=== PATIENT | male | born 1960 | race Caucasian/White ===

== ENCOUNTER 2016-06-05 15:19 | Emergency (ER) | payer BC ==
[2016-06-05] MEDS ORDERED: Ketorolac 30 MG/ML SDV IVPUSH ONE (15:31)
[2016-06-05] MEDS ORDERED: HYDROmorphone 2 MG/ML Syringe IVPUSH ONE ×2 (15:31→16:50)
[2016-06-05] MEDS ORDERED: Ondansetron 4 MG/2 ML SDV IVPUSH ONE ×2 (15:31→16:50)
[2016-06-05] MEDS ORDERED: Sodium Chloride 0.9% 1,000 ML IV ONE (15:31)
[2016-06-05] MEDS ORDERED: Sodium Chloride 0.9% 10 ML Syringe FLUSH PRN (15:31)
[2016-06-05] MEDS ORDERED: Sodium Chloride 0.9% 2.5 ML Syringe FLUSH PRN (15:31)
--- NOTE | 2016-06-05 15:40 | EDM.PDOC ---
ED HPI GENERAL MEDICAL PROBLEM - General Chief Complaint: Abdominal Pain Stated Complaint: STOMACH PAIN/KIDNEY STONES Time Seen by Provider: 06/05/16 15:23 - History of Present Illness INITIAL COMMENTS - FREE TEXT/NARRATIVE: HISTORY AND PHYSICAL: History of present illness: The patient is a 55-year-old male with a history of mho-azihhbm-rljoeybll diabetes who presents with severe left sided and left flank pain as been ongoing for the last several days and intractable vomiting that has been going on for the last day and a half. The patient states the pain started suddenly in the left lower abdomen and he went to the ER in [place] and was evaluated there. He had a full workup including EKG troponin CBC CMP and a CT scan of the abdomen and pelvis with contrast. He was diagnosed with a 5 mm left UPJ stone with mild hydronephrosis. He was placed on [place] and Zofran and discharged home. The patient states that he has tried to take the [place] but it causes him to have nausea and he vomits the patella. He was only doing this intermittently in the first 12 hours after being discharged from their ER but now for the last 24 hours he has intractable vomiting and persistent pain. He says he now feels more bloated he has not had a bowel movement 24-hour switch is unusual for him because he usually has 2-3 a day. He has not had any black or bloody vomitus and no black or blood in his stools. He is able to urinate and does not feel that he has urinary retention and there is no frequency urgency or dysuria. The patient states the pain is localized to the left side at the flank and the abdomen is not midline back and doesn't radiate to his legs. Patient denies any chest pain or shortness of breath. The patient states that with the vomiting he is also unable to even tolerate ice chips or water. His tried the Zofran he was given and says it is not working. Review of systems: As per history of present illness and below otherwise all systems reviewed and negative. Past medical history: As per history of present illness and as reviewed below otherwise noncontributory. Surgical history: As per history of present illness and as reviewed below otherwise noncontributory. Social history: No reported history of drug or alcohol abuse. Family history: As per history of present illness and as reviewed below otherwise noncontributory. Physical exam: General: Well-developed overweight male who is nontoxic and looks uncomfortable in the room. Vital signs been noted by me HEENT: Atraumatic, normocephalic, negative for conjunctival pallor or scleral icterus, mucous membranes tacky, throat clear, neck supple, nontender, trachea midline. Lungs: Clear to auscultation, breath sounds equal bilaterally, chest nontender. Heart: S1S2, regular, negative for clicks, rubs, or JVD. Abdomen: Soft, mildly distended and tympanitic on percussion and tenderness is identified on deep palpation in the right upper mid and lower abdomen without rebound or guarding. The patient states that when I palpate I cannot reproduce the pain that he is feeling. Negative for masses or hepatosplenomegaly. Negative for costovertebral tenderness. Pelvis: Stable nontender. Genitourinary: Deferred. Rectal: Deferred. Extremities: Atraumatic, negative for cords or calf pain. Neurovascular unremarkable. Neuro: Awake, alert, oriented. Cranial nerves II through XII unremarkable. Cerebellum unremarkable. Motor and sensory unremarkable throughout. Exam nonfocal. Diagnostics: CBC CMP UA urine culture repeat CT scan of the abdomen and pelvis The has brought all testing results from [place] and I reviewed the CT and all the labs. Of note is the urine was 21 and creatinine of 1.67 and he was given contrast with this CT scan. His glucose was 207. His CAT scan also incidentally identified a calcified punctate gallstone at the gallbladder fundus but there is no ductal dilatation. He was also noted that the patient had 4 other calculi in the left kidney the largest measuring 8 mm and no calculi on the right. On the CT no bowel wall thickening or constipation was identified or at least reported on this report Therapeutics: IV fluids Zofran Toradol Dilaudid I discussed all testing results with the patient and at bedside. The patient states the pain is significantly improved as is the nausea but it is starting to come back. They are aware of the size of the stone, 4 x 9 mm in the proximal left ureter with mild hydro-. In light of the patient's intractable pain and vomiting, the size of the stone, and his rise in creatinine from 1.672 days ago to 2.2 today I will plan on discussing the case with urology at [facility] in [place]. The patient is aware that he will need to be transferred as our urologist is out of town. The patient is also aware that he needs to give a urine sample as he has not done so yet 1715: As was discussed with the ER physician at [facility] [place] who accepts the patient for transfer. He is aware that we obtained a urine sample and that I will follow those results and treat accordingly Impression: Large left proximal ureteral stone with intractable pain/vomiting and rising creatinine; h/o NIDDM Definitive disposition and diagnosis as appropriate pending reevaluation and review of above. Abdominal Pain Score (Numeric/FACES): 10 - Related Data Allergies Allergy/AdvReac Type Severity Reaction Status Date / Time No Known Allergies Allergy Verified 06/05/16 15:22 Home Meds: Home Meds Acetaminophen/HYDROcodone [[place] 325-5 MG] 1 tab PO Q6HR PRN 06/05/16 [History] Famotidine [Pepcid AC] 1 tab PO ASDIRECTED 06/05/16 [History] metFORMIN [Glucophage XR] 1 tab PO BID 06/05/16 [History] ED ROS GENERAL - Review of Systems Review Of Systems: ROS reveals no pertinent complaints other than HPI. ED EXAM, GENERAL - Physical Exam Exam: See Below (See dictation) Course - Vital Signs Last Recorded V/S: Last Vital Signs Temp 36.7 C 06/05/16 15:22 Pulse 69 06/05/16 17:00 Resp 18 06/05/16 17:00 BP 125/72 06/05/16 17:00 Pulse Ox 96 06/05/16 17:00 - Orders/Labs/Meds Orders: Active Orders 24 hr Category Date Time Status Abdomen Pelvis wo Cont [CT] Stat Exams 06/05/16 15:35 Taken CULTURE URINE [RM] Stat Lab 06/05/16 17:00 Received UA W/MICROSCOPIC [URIN] Stat Lab 06/05/16 17:00 Results Sodium Chloride 0.9% [Saline Flush] Med 06/05/16 15:31 Active 10 ml FLUSH ASDIRECTED PRN Sodium Chloride 0.9% [Saline Flush] Med 06/05/16 15:31 Active 2.5 ml FLUSH ASDIRECTED PRN Saline Lock Insert [OM.PC] Stat Oth 06/05/16 15:30 Ordered Medication Orders Sodium Chloride (Saline Flush) 10 ml FLUSH ASDIRECTED PRN PRN Reason: Keep Vein Open Sodium Chloride (Saline Flush) 2.5 ml FLUSH ASDIRECTED PRN PRN Reason: Keep Vein Open Labs: Laboratory Tests 06/05/16 06/05/16 06/05/16 Range/Units 15:35 15:35 17:00 WBC 9.48 (4.0-11.0) K/uL RBC 5.17 (4.50-5.90) M/uL Hgb 16.4 (13.0-17.0) g/dL Hct 45.6 (38.0-50.0) % MCV 88.2 (80.0-98.0) fL MCH 31.7 (27.0-32.0) pg MCHC 36.0 (31.0-37.0) g/dL RDW Std Deviation 39.6 (28.0-62.0) fl RDW Coeff of Apple 12 (11.0-15.0) % Plt Count 156 (150-400) K/uL MPV 11.10 (7.40-12.00) fL Neut % (Auto) 88.5 H (48.0-80.0) % Lymph % (Auto) 6.3 L (16.0-40.0) % Banks % (Auto) 4.6 (0.0-15.0) % Eos % (Auto) 0.5 (0.0-7.0) % Baso % (Auto) 0.1 (0.0-1.5) % Neut # 8.4 H (1.4-5.7) K/uL Lymph # 0.6 (0.6-2.4) K/uL Banks # 0.4 (0.0-0.8) K/uL Eos # 0.1 (0.0-0.7) K/uL Baso # 0.0 (0.0-0.1) K/uL Nucleated RBC % 0.0 /100WBC Nucleated RBCs # 0 K/uL Sodium 139 (136-146) mmol/L Potassium 4.7 (3.5-5.1) mmol/L Chloride 105 (98-110) mmol/L Carbon Dioxide 23 (21-31) mmol/L BUN 24 H (6.0-23.0) mg/dL Creatinine 2.2 H (0.6-1.5) mg/dL Est Cr Clr Drug Dosing 37.57 mL/min Estimated GFR (MDRD) 31.5 ml/min Glucose 170 H (60-110) mg/dL Calcium 9.4 (8.8-10.8) mg/dL Total Bilirubin 1.3 (0.1-1.5) mg/dL AST 22 (5-40) IU/L ALT 38 (8-54) IU/L Alkaline Phosphatase 56 (40-150) Total Protein 7.8 (6.0-8.0) g/dL Albumin 4.3 (3.5-5.0) g/dL Globulin 3.5 (2.0-3.5) g/dL Albumin/Globulin Ratio 1.2 L (1.3-2.8) Urine Color YELLOW Urine Appearance CLEAR Urine pH 6.0 (5.0-8.0) Ur Specific [place] 1.025 (1.001-1.035) Urine Protein TRACE (NEGATIVE) mg/dL Urine Glucose (UA) NEGATIVE (NEGATIVE) mg/dL Urine Ketones >=80 (NEGATIVE) mg/dL Urine Occult Blood SMALL H (NEGATIVE) Urine Nitrite NEGATIVE (NEGATIVE) Urine Bilirubin SMALL H (NEGATIVE) Urine Urobilinogen 0.2 (<2.0) EU/dL Ur Leukocyte Esterase NEGATIVE (NEGATIVE) Meds: Medications Generic Name Dose Route Start Last Admin Trade Name Jesusq PRN Reason Stop Dose Admin Sodium Chloride 10 ml 06/05/16 15:31 Saline Flush FLUSH ASDIRECTED PRN Keep Vein Open Sodium Chloride 2.5 ml 06/05/16 15:31 Saline Flush FLUSH ASDIRECTED PRN Keep Vein Open Discontinued Medications Generic Name Dose Route Start Last Admin Trade Name Jesusq PRN Reason Stop Dose Admin Hydromorphone HCl 1 mg 06/05/16 15:31 06/05/16 15:48 Dilaudid IVPUSH 06/05/16 15:32 1 mg ONETIME ONE Administration Hydromorphone HCl 1 mg 06/05/16 16:50 06/05/16 17:04 Dilaudid IVPUSH 06/05/16 16:51 1 mg ONETIME ONE Administration Sodium Chloride 1,000 mls @ 999 mls/hr 06/05/16 15:31 06/05/16 15:40 Normal Saline IV 06/05/16 16:31 999 mls/hr STAT ONE Administration Ketorolac Tromethamine 30 mg 06/05/16 15:31 06/05/16 15:45 Toradol IVPUSH 06/05/16 15:32 30 mg ONETIME ONE Administration Ondansetron HCl 4 mg 06/05/16 15:31 06/05/16 15:44 Zofran IVPUSH 06/05/16 15:32 4 mg ONETIME ONE Administration Ondansetron HCl 4 mg 06/05/16 16:50 06/05/16 17:03 Zofran IVPUSH 06/05/16 16:51 4 mg ONETIME ONE Administration Departure - Departure Time of Disposition: 17:18 Disposition: DC/Tfer to Acute Hospital 02 Condition: good Clinical Impression: Ureteral stone with hydronephrosis, Intractable pain Forms: ED Department Discharge - My Orders Last 24 Hours: My Active Orders 06/05/16 15:30 Saline Lock Insert [OM.PC] Stat 06/05/16 15:31 Sodium Chloride 0.9% [Saline Flush] 10 ml FLUSH ASDIRECTED PRN Sodium Chloride 0.9% [Saline Flush] 2.5 ml FLUSH ASDIRECTED PRN 06/05/16 15:35 Abdomen Pelvis wo Cont [CT] Stat 06/05/16 17:00 CULTURE URINE [RM] Stat UA W/MICROSCOPIC [URIN] Stat - Assessment/Plan Last 24 Hours: My Active Orders 06/05/16 15:30 Saline Lock Insert [OM.PC] Stat 06/05/16 15:31 Sodium Chloride 0.9% [Saline Flush] 10 ml FLUSH ASDIRECTED PRN Sodium Chloride 0.9% [Saline Flush] 2.5 ml FLUSH ASDIRECTED PRN 06/05/16 15:35 Abdomen Pelvis wo Cont [CT] Stat 06/05/16 17:00 CULTURE URINE [RM] Stat UA W/MICROSCOPIC [URIN] Stat
[2016-06-05] MEDS ORDERED: Levofloxacin/Dextrose 5%-Water 500 MG in Premix Bag 1 BAG IV ONE (17:18)
[2016-06-05] MEDS ORDERED: Levofloxacin/Dextrose 5%-Water 100 ML IV ONE (17:24)
[2016-06-05 19:06] VITALS: BP 136/79
--- NOTE | 2016-06-06 19:36 | CT ---
EXAM DATE: 06/05/16 PATIENT'S AGE: 55 Patient: FRANCIA HUFF Facility: [place], [place] Site . Site : [id number] Study: CT Abdomen/Pelvis [id number]/19/2017 4:13:53 PM Ordering Physician: Kathryn Zayas Final Report: TECHNIQUE: Noncontrast CT of the abdomen and pelvis. INDICATION: Left flank pain. FINDINGS: 0.4 x 0.9 cm stone in the proximal left ureter causing mild left-sided hydronephrosis. Several small nonobstructing stones within the left kidney. There is also a 1.6 cm hyperdense lesion within the mid posterior left kidney. Cannot exclude a solid mass. Small cysts in both kidneys. No right nephrolithiasis. Diffuse fatty infiltration of the liver. Gallbladder and biliary tree are unremarkable. Spleen, pancreas, and adrenal glands appear normal. No bowel obstruction. Appendix is normal. No adenopathy, free air, or free fluid. Multiple spiculated ground-glass opacities measuring up to 2 cm in the lung bases. Differential considerations include infection, malignancy, vasculitis. IMPRESSION: 1. 4 x 9 mm stone in the proximal left ureter causing very mild left-sided hydronephrosis. 2. Additional left nephrolithiasis. 3. 1.6 cm hypodensity left kidney lesion. Recommend renal ultrasound. 4. Multiple spiculated ground glass opacities in the lung bases. Recommend comparison with any available prior CTs or evaluation with full chest CT. Please note that all CT scans performed at this facility use dose modulation, iterative reconstruction, and/or weight based dosing when appropriate to reduce radiation dose to as low as reasonably achievable. Dictated by Ang Alcantara MD @ 06/05/2016 4:27:27 PM Dictated by: Ang Alcantara MD @ 06/05/2016 16:27:55 (Electronic Signature) Report Signed by Proxy and Original Signed Document filed in the Medical Record. MTDD
== END 2016-06-05 18:05 ==
LOC: MW.ED 15:19
DX: N13.2 Hydronephrosis with renal and ureteral calculous obstruction (principal); Z79.84 Long term (current) use of oral hypoglycemic drugs; Z79.899 Other long term (current) drug therapy
CPT/HCPCS: 36415; 74176; 80053; 81001; 85025; 87086; 96361; 96365; 96375; 96376; 99285; J1170; J1885; J1956; J2405; J7040; 99284